=== PATIENT | male | born 1940 | race Caucasian/White ===

== ENCOUNTER 2017-08-19 15:18 | Inpatient (IN) | payer OTHER ==
[2017-08-19] MEDS: morphine 4 MG/ML VIAL IV (21:58)
[2017-08-19] MEDS: ONDANSETRON 4 MG INJ IV (21:58)
[2017-08-19] MEDS: SODIUM CHLORIDE 0.9% 1L BAG IV* (21:59)
[2017-08-19 22:06] LABS: ADD MAN DIFF? NO
[2017-08-19 22:09] LABS: WHITE BLOOD COUNT 6.3 10^3/ul (4.8-10.8)
[2017-08-19 22:09] LABS: BASOPHILS % 0.6 % (0.0-2.0); EOSINOPHILS % 0.2 % (0.0-7.0); HEMATOCRIT 29.6 % (42.0-52.0); HEMOGLOBIN 9.7 g/dl (14.0-18.0); LYMPHOCYTES # 1.3 10^3/ul (0.8-2.9); LYMPHOCYTES % 20.4 % (15.0-51.0); MEAN CORPUSCULAR HEMOGLOBIN 29.6 pg (29.0-33.0); MEAN CORPUSCULAR HGB CONC 32.8 g/dl (32.0-37.0); MEAN CORPUSCULAR VOLUME 90.2 fl (82.0-101.0); MEAN PLATELET VOLUME 12.8 fl (7.4-10.4); MONOCYTE # 0.5 10^3/ul (0.3-0.9); MONOCYTES % 7.2 % (0.0-11.0); NEUTROPHIL # 4.4 10^3/ul (1.6-7.5); NEUTROPHILS % 70.6 % (39.0-77.0); PLATELET COUNT 116 10^3/UL (140-415); RED BLOOD COUNT 3.28 10^6/ul (4.70-6.10); RED CELL DISTRIBUTION WIDTH 17.5 % (11.5-14.5)
[2017-08-19 22:26] LABS: ADD UMIC YES; UR ASCORBIC ACID NEGATIVE (NEGATIVE); UR BACTERIA FEW /HPF (NONE SEEN); UR BILIRUBIN (Dip) NEGATIVE (NEGATIVE); UR BLOOD (Dip) 3+ mg/dL (NEGATIVE); UR CLARITY SLIGHTLY CLOUDY (CLEAR); UR COLOR YELLOW (YELLOW); UR GLUCOSE (Dip) NEGATIVE (NEGATIVE); UR KETONES (Dip) NEGATIVE (NEGATIVE); UR LEUKOCYTE ESTERASE (Dip) 2+ Leu/ul (NEGATIVE); UR NITRITE (Dip) NEGATIVE (NEGATIVE); UR RBC 46 /HPF (0-5); UR SPECIFIC GRAVITY (Dip) 1.013 (1.003-1.030); UR TOTAL PROTEIN (Dip) 2+ mg/dl (NEGATIVE); UR UROBILINOGEN (Dip) 1+ mg/dL (NEGATIVE); UR WBC 22 /HPF (0-5)
[2017-08-19 22:27] LABS: ALANINE AMINOTRANSFERASE 305 IU/L (13-69); ALBUMIN 4.3 g/dl (3.3-4.9); ALBUMIN/GLOBULIN RATIO 1.16; ALKALINE PHOSPHATASE 146 IU/L (42-121); ANION GAP 23 (8-16); ASPARTATE AMINO TRANSFERASE 292 IU/L (15-46); BILIRUBIN,INDIRECT 0.7 mg/dl (0-1.1); BILIRUBIN,TOTAL 0.7 mg/dl (0.2-1.3); BLOOD UREA NITROGEN 70 mg/dl (7-20); CALCIUM 9.2 mg/dl (8.4-10.2); CARBON DIOXIDE 20 mmol/L (21-31); CHLORIDE 100 mmol/L (97-110); CREATININE 2.29 mg/dl (0.61-1.24); GLUCOSE 121 mg/dl (70-220); LIPASE 110 U/L (23-300); POTASSIUM 3.8 mmol/L (3.5-5.1); SODIUM 139 mmol/L (135-144)
[2017-08-19 22:46] LABS: LACTIC ACID 2.2 mmol/L (0.5-2.0)
[2017-08-19 23:33] LABS: INR 1.79; PARTIAL THROMBOPLASTIN TIME 32.9 Sec (25.0-35.0); PROTIME 21.2 Sec (11.9-14.9); PT RATIO 1.7
[2017-08-20] MEDS: PIPER-TAZO 3.375 GM IV (PMX) 50 ML IVPB (00:26)
[2017-08-20] MEDS ORDERED: ACETAMINOPHEN 325 MG TAB PO (01:00)
[2017-08-20] MEDS ORDERED: ONDANSETRON 4 MG INJ IV (01:00)
[2017-08-20] MEDS: SOD CHLORIDE 0.9% 1,000 ML IV (01:01)
[2017-08-20 03:38] LABS: LACTIC ACID 1.7 mmol/L (0.5-2.0)
[2017-08-20] MEDS: SOD CHLORIDE 0.9% 500 ML IV ×4 (04:20→20:18)
[2017-08-20] MEDS: INSULIN ASPART [NOVOLOG] 3 ML PEN SC ×5 (04:23→20:26)
[2017-08-20] MEDS ORDERED: DEXTROSE 50% 50 ML SYRINGE IV ×2 (04:30)
[2017-08-20] MEDS ORDERED: GLUCOSE GEL 15 GRAM TUBE BUCCAL (04:30)
[2017-08-20] MEDS ORDERED: GLUCAGON 1 MG INJ IM (04:30)
[2017-08-20] MEDS ORDERED: GLUCOSE GEL 15 GRAM TUBE PO ×2 (04:30)
[2017-08-20] MEDS: DEXTROSE 5%-0.9% NACL 1,000 ML IV ×3 (05:22→15:59)
[2017-08-20] MEDS: PIPER-TAZO 2.25 GM (PMX) 50 ML IVPB ×3 (06:17→18:46)
[2017-08-20 06:46] LABS: ADD MAN DIFF? NO
[2017-08-20 07:04] LABS: ABNORMAL IP MESSAGE 1; BASOPHILS % 0.3 % (0.0-2.0); HEMATOCRIT 28.3 % (42.0-52.0); LYMPHOCYTES # 0.8 10^3/ul (0.8-2.9); LYMPHOCYTES % 11.5 % (15.0-51.0); MEAN CORPUSCULAR HGB CONC 31.8 g/dl (32.0-37.0); MEAN CORPUSCULAR VOLUME 94.3 fl (82.0-101.0); MEAN PLATELET VOLUME 13.3 fl (7.4-10.4); MONOCYTE # 0.5 10^3/ul (0.3-0.9); MONOCYTES % 6.9 % (0.0-11.0); NEUTROPHIL # 5.3 10^3/ul (1.6-7.5); NEUTROPHILS % 80.5 % (39.0-77.0); PLATELET COUNT 91 10^3/UL (140-415); POSITIVE DIFF @See below; RED CELL DISTRIBUTION WIDTH 17.5 % (11.5-14.5)
[2017-08-20 07:04] LABS: WHITE BLOOD COUNT 6.5 10^3/ul (4.8-10.8)
[2017-08-20 07:13] LABS: ALANINE AMINOTRANSFERASE 482 IU/L (13-69); ALBUMIN 3.3 g/dl (3.3-4.9); ALBUMIN/GLOBULIN RATIO 1.03; ALKALINE PHOSPHATASE 183 IU/L (42-121); ANION GAP 19 (8-16); ASPARTATE AMINO TRANSFERASE 525 IU/L (15-46); BILIRUBIN,INDIRECT 0.6 mg/dl (0-1.1); BILIRUBIN,TOTAL 0.6 mg/dl (0.2-1.3); BLOOD UREA NITROGEN 69 mg/dl (7-20); CALCIUM 8.1 mg/dl (8.4-10.2); CARBON DIOXIDE 19 mmol/L (21-31); CHLORIDE 107 mmol/L (97-110); CREATININE 2.25 mg/dl (0.61-1.24); GLUCOSE 117 mg/dl (70-220); MAGNESIUM 2.2 mg/dl (1.7-2.5); PHOSPHORUS 6.5 mg/dl (2.5-4.9); POTASSIUM 4.1 mmol/L (3.5-5.1); SODIUM 141 mmol/L (135-144); TOTAL PROTEIN 6.5 g/dl (6.1-8.1)
[2017-08-20 07:37] LABS: LACTIC ACID 2.3 mmol/L (0.5-2.0)
[2017-08-20] MEDS: FAMOTIDINE 20 MG INJ IV (09:20)
[2017-08-20 10:47] LABS: HEMOGLOBIN A1C 6.3 % (0-5.9)
[2017-08-20] MEDS ORDERED: SOD CHLORIDE 0.9% 1,000 ML IV (11:00)
[2017-08-20 14:08] LABS: LACTIC ACID 3.2 mmol/L (0.5-2.0)
[2017-08-20] MEDS: TAMSULOSIN (SR) 0.4 MG CAP PO (20:22)
[2017-08-20] MEDS: ALBUTEROL/IPRATROPIUM (NEB) 3 ML AMP HHN (21:14)
[2017-08-20] MEDS: ACETAMINOPHEN 1000MG/100ML IV 100 ML IVPB (21:27)
[2017-08-21] MEDS: PIPER-TAZO 2.25 GM (PMX) 50 ML IVPB ×5 (01:04→23:32)
[2017-08-21] MEDS: INSULIN ASPART [NOVOLOG] 3 ML PEN SC ×6 (01:13→20:28)
[2017-08-21] MEDS: ACCU-CHEK XX (01:13)
[2017-08-21] MEDS: DEXTROSE 5%-0.9% NACL 1,000 ML IV ×4 (03:56→23:33)
[2017-08-21] MEDS: ALBUTEROL/IPRATROPIUM (NEB) 3 ML AMP HHN (05:27)
[2017-08-21] MEDS: FAMOTIDINE 20 MG INJ IV (08:40)
[2017-08-21 09:56] LABS: ANION GAP 24 (8-16); BLOOD UREA NITROGEN 71 mg/dl (7-20); CALCIUM 8.2 mg/dl (8.4-10.2); CARBON DIOXIDE 11 mmol/L (21-31); CHLORIDE 115 mmol/L (97-110); CREATININE 2.46 mg/dl (0.61-1.24); GLUCOSE 128 mg/dl (70-220); POTASSIUM 4.7 mmol/L (3.5-5.1); SODIUM 145 mmol/L (135-144)
[2017-08-21 10:24] LABS: ALANINE AMINOTRANSFERASE 810 IU/L (13-69); ALBUMIN 3.8 g/dl (3.3-4.9); ALKALINE PHOSPHATASE 244 IU/L (42-121); BILIRUBIN,INDIRECT 0.6 mg/dl (0-1.1); BILIRUBIN,TOTAL 0.6 mg/dl (0.2-1.3); TOTAL PROTEIN 7.2 g/dl (6.1-8.1)
[2017-08-21 10:39] LABS: ASPARTATE AMINO TRANSFERASE 1145 IU/L (15-46)
[2017-08-21 12:19] LABS: WHITE BLOOD COUNT 7.4 10^3/ul (4.8-10.8)
[2017-08-21 12:19] LABS: ABNORMAL IP MESSAGE 1; HEMATOCRIT 29.3 % (42.0-52.0); HEMOGLOBIN 9.6 g/dl (14.0-18.0); MEAN CORPUSCULAR HEMOGLOBIN 30.7 pg (29.0-33.0); MEAN CORPUSCULAR HGB CONC 32.8 g/dl (32.0-37.0); MEAN CORPUSCULAR VOLUME 93.6 fl (82.0-101.0); MEAN PLATELET VOLUME 14.2 fl (7.4-10.4); NUCLEATED RED BLOOD CELLS% 0.7 /100WBC (0.0-0.0); POSITIVE DIFF @See below; RED BLOOD COUNT 3.13 10^6/ul (4.70-6.10); RED CELL DISTRIBUTION WIDTH 17.7 % (11.5-14.5)
[2017-08-21 12:22] LABS: PLATELET COUNT 65 10^3/UL (140-415)
[2017-08-21 12:23] LABS: ADD MAN DIFF? YES
[2017-08-21 12:46] LABS: ALANINE AMINOTRANSFERASE 971 IU/L (13-69); ALKALINE PHOSPHATASE 133 IU/L (42-121); ANION GAP 19 (8-16); BILIRUBIN,INDIRECT 0.5 mg/dl (0-1.1); BILIRUBIN,TOTAL 0.5 mg/dl (0.2-1.3); BLOOD UREA NITROGEN 69 mg/dl (7-20); CALCIUM 8.2 mg/dl (8.4-10.2); CARBON DIOXIDE 15 mmol/L (21-31); CHLORIDE 115 mmol/L (97-110); CREATININE 2.43 mg/dl (0.61-1.24); GLUCOSE 135 mg/dl (70-220); POTASSIUM 3.6 mmol/L (3.5-5.1); SODIUM 145 mmol/L (135-144)
[2017-08-21 12:53] LABS: ASPARTATE AMINO TRANSFERASE 905 IU/L (15-46)
[2017-08-21 12:56] LABS: LACTIC ACID 3.3 mmol/L (0.5-2.0)
[2017-08-21 13:01] LABS: ANISOCYTOSIS 1+ (0-0); BAND NEUTROPHILS #M 0.5 10^3/ul (0.0-0.6); BAND NEUTROPHILS % (M) 8 % (0-4); BASOPHIL #M 0.1 10^3/ul (0.0-0.0); BASOPHILS % (M) 2 % (0-2); ERYTHROBLAST% (NRBC) (M) 2 % (0-0); LYMPHOCYTES % (M) 14 % (15-51); MONOCYTE #M 0.5 10^3/ul (0.3-0.9); MONOCYTES % (M) 7 % (0-11); PLATELET ESTIMATE DECREASED; POIKILOCYTOSIS 1+ (0-0); POLYCHROMASIA 3+ (0-0); SEG NEUT #M 5.1 10^3/ul (1.7-7.5); SEGMENTED NEUTROPHILS (M) % 69 % (39-77); SMUDGE%M 2 % (0-0)
[2017-08-21 17:11] LABS: CARCINOEMBRYONIC ANTIGEN 1.2 ng/ml (0.0-5.0)
[2017-08-21 17:15] LABS: CANCER ANTIGEN 19-9 10.4 U/ml (0.0-37.0)
[2017-08-21 17:22] LABS: ALPHA FETOPROTEIN 1.18 IU/L (0.00-7.21)
[2017-08-21] MEDS: TAMSULOSIN (SR) 0.4 MG CAP PO (20:28)
[2017-08-22] MEDS: INSULIN ASPART [NOVOLOG] 3 ML PEN SC ×6 (01:00→21:34)
[2017-08-22] MEDS: ACCU-CHEK XX (01:17)
[2017-08-22] MEDS: PIPER-TAZO 2.25 GM (PMX) 50 ML IVPB ×3 (05:32→17:19)
[2017-08-22] MEDS: DEXTROSE 5%-0.9% NACL 1,000 ML IV ×2 (05:48→08:24)
[2017-08-22 08:06] LABS: WHITE BLOOD COUNT 7.4 10^3/ul (4.8-10.8)
[2017-08-22 08:06] LABS: ABNORMAL IP MESSAGE 1; HEMATOCRIT 27.8 % (42.0-52.0); HEMOGLOBIN 8.8 g/dl (14.0-18.0); MEAN CORPUSCULAR HEMOGLOBIN 29.7 pg (29.0-33.0); MEAN CORPUSCULAR HGB CONC 31.7 g/dl (32.0-37.0); MEAN CORPUSCULAR VOLUME 93.9 fl (82.0-101.0); NUCLEATED RED BLOOD CELLS% 0.8 /100WBC (0.0-0.0); PLATELET COUNT 39 10^3/UL (140-415); POSITIVE DIFF @See below; RED BLOOD COUNT 2.96 10^6/ul (4.70-6.10); RED CELL DISTRIBUTION WIDTH 17.9 % (11.5-14.5)
[2017-08-22] MEDS: FAMOTIDINE 20 MG INJ IV (08:24)
[2017-08-22 08:32] LABS: ANION GAP 20 (8-16); BLOOD UREA NITROGEN 63 mg/dl (7-20); CALCIUM 8.5 mg/dl (8.4-10.2); CARBON DIOXIDE 16 mmol/L (21-31); CHLORIDE 116 mmol/L (97-110); CREATININE 2.44 mg/dl (0.61-1.24); GLUCOSE 113 mg/dl (70-220); POTASSIUM 3.3 mmol/L (3.5-5.1); SODIUM 149 mmol/L (135-144)
[2017-08-22 08:39] LABS: ADD MAN DIFF? YES
[2017-08-22 09:05] LABS: AADO2 Arterial 37.6 mmHg (7.0-24.0); Allen Test ACCEPTAB; Arterial Base Excess -9.8 mmol/L (-3.0-3); Arterial Blood Gas Oxygen Sat 93.7 mmHG (95.0-100.0); Arterial COHb 0.2 % (0.0-3.0); Arterial Fraction of Oxyhgb 93.2 % (93.0-99.0); Arterial HCO3 14.4 mmol/L (22.0-26.0); Arterial MetHb 0.3 % (0.0-1.5); Arterial Total Hemglobin 9.4 g/dl (12.0-18.0); Arterial pCO2 26.2 mmhg (35-45); MODE ROOM AIR; Site Right Radial
[2017-08-22] MEDS: HYDROCODONE/APAP (5/325) TAB PO (09:36)
[2017-08-22] MEDS: DEXTROSE 5%-0.45% NACL 1,000 ML IV ×2 (09:36→17:18)
[2017-08-22] MEDS: POTASSIUM CHLORIDE 20 MEQ POWDER FOR ORAL SOLN PO (09:37)
[2017-08-22 09:47] LABS: ANISOCYTOSIS 1+ (0-0); BURR CELLS 2+ (0-0); EOSINOPHILS % (M) 2 % (0-7); ERYTHROBLAST% (NRBC) (M) 2 % (0-0); GIANT THROMBO% (M) 2 % (0-0); HYPOCHROMASIA 1+ (0-0); LYMPHOCYTES #M 0.8 10^3/ul (0.8-2.9); LYMPHOCYTES % (M) 11 % (15-51); MONOCYTE #M 0.5 10^3/ul (0.3-0.9); MONOCYTES % (M) 7 % (0-11); PLATELET ESTIMATE DECREASED; POIKILOCYTOSIS 2+ (0-0); POLYCHROMASIA 1+ (0-0); REACTIVE LYMPHOCYTES% (M) 1 % (0-0); SEGMENTED NEUTROPHILS (M) % 79 % (39-77); SMUDGE%M 2 % (0-0); TARGET CELLS 1+ (0-0)
[2017-08-22 12:44] LABS: ADD UMIC YES; UR ASCORBIC ACID NEGATIVE (NEGATIVE); UR BACTERIA FEW /HPF (NONE SEEN); UR BILIRUBIN (Dip) NEGATIVE (NEGATIVE); UR BLOOD (Dip) 1+ mg/dL (NEGATIVE); UR CLARITY CLEAR (CLEAR); UR COLOR YELLOW (YELLOW); UR GLUCOSE (Dip) NEGATIVE (NEGATIVE); UR KETONES (Dip) NEGATIVE (NEGATIVE); UR LEUKOCYTE ESTERASE (Dip) TRACE Leu/ul (NEGATIVE); UR NITRITE (Dip) NEGATIVE (NEGATIVE); UR RBC 3 /HPF (0-5); UR SPECIFIC GRAVITY (Dip) 1.016 (1.003-1.030); UR TOTAL PROTEIN (Dip) 1+ mg/dl (NEGATIVE); UR UROBILINOGEN (Dip) NEGATIVE (NEGATIVE); UR WBC 4 /HPF (0-5)
[2017-08-22 12:58] LABS: SODIUM,URINE RANDOM 17 mmol/L (30-90)
[2017-08-22 14:11] LABS: ALANINE AMINOTRANSFERASE 848 IU/L (13-69); ALBUMIN 2.9 g/dl (3.3-4.9); ALKALINE PHOSPHATASE 120 IU/L (42-121); ASPARTATE AMINO TRANSFERASE 520 IU/L (15-46); BILIRUBIN,INDIRECT 0.5 mg/dl (0-1.1); BILIRUBIN,TOTAL 0.5 mg/dl (0.2-1.3); TOTAL PROTEIN 6.1 g/dl (6.1-8.1)
[2017-08-22] MEDS: ALBUTEROL/IPRATROPIUM (NEB) 3 ML AMP HHN ×2 (14:14→20:47)
[2017-08-22 18:06] LABS: HEPATITIS B SURFACE ANTIGEN NEGATIVE (NEGATIVE)
[2017-08-22 18:22] LABS: HEPATITIS B SURFACE ANTIBODY NEGATIVE (NEGATIVE)
[2017-08-22 18:24] LABS: HEPATITIS B CORE ANTIBODY NEGATIVE (NEGATIVE); HEPATITIS C VIRAL ANTIBODY NEGATIVE (NEGATIVE)
[2017-08-22] MEDS ORDERED: ATORVASTATIN 80 MG TAB PO (21:00)
[2017-08-22] MEDS: TAMSULOSIN (SR) 0.4 MG CAP PO (21:05)
[2017-08-23] MEDS: PIPER-TAZO 2.25 GM (PMX) 50 ML IVPB ×5 (00:39→23:02)
[2017-08-23] MEDS: INSULIN ASPART [NOVOLOG] 3 ML PEN SC ×6 (00:54→21:00)
[2017-08-23] MEDS: ACCU-CHEK XX (00:54)
[2017-08-23] MEDS: ALBUTEROL/IPRATROPIUM (NEB) 3 ML AMP HHN ×5 (01:52→19:43)
[2017-08-23] MEDS: DEXTROSE 5%-0.45% NACL 1,000 ML IV ×2 (05:01→12:51)
[2017-08-23 08:06] LABS: ADD MAN DIFF? NO
[2017-08-23] MEDS: ASPIRIN (EC) 81 MG TAB PO (08:15)
[2017-08-23] MEDS: ISOSORBIDE MONONITRATE(SR)30 MG TAB PO (08:15)
[2017-08-23] MEDS: FAMOTIDINE 20 MG INJ IV (08:18)
[2017-08-23 08:19] LABS: ABNORMAL IP MESSAGE 1; BASOPHIL # 0.1 10^3/ul (0.0-0.1); BASOPHILS % 0.7 % (0.0-2.0); EOSINOPHILS % 0.3 % (0.0-7.0); HEMATOCRIT 30.1 % (42.0-52.0); HEMOGLOBIN 9.4 g/dl (14.0-18.0); LYMPHOCYTES # 0.9 10^3/ul (0.8-2.9); LYMPHOCYTES % 11.8 % (15.0-51.0); MEAN CORPUSCULAR HEMOGLOBIN 29.8 pg (29.0-33.0); MEAN CORPUSCULAR HGB CONC 31.2 g/dl (32.0-37.0); MEAN CORPUSCULAR VOLUME 95.6 fl (82.0-101.0); MONOCYTE # 0.8 10^3/ul (0.3-0.9); MONOCYTES % 10.3 % (0.0-11.0); NEUTROPHIL # 5.6 10^3/ul (1.6-7.5); NEUTROPHILS % 75.6 % (39.0-77.0); NUCLEATED RED BLOOD CELLS # 0.1 10^3/ul (0.0-0.0); NUCLEATED RED BLOOD CELLS% 1.3 /100WBC (0.0-0.0); POSITIVE DIFF @See below; RED BLOOD COUNT 3.15 10^6/ul (4.70-6.10); RED CELL DISTRIBUTION WIDTH 18.3 % (11.5-14.5)
[2017-08-23 08:19] LABS: WHITE BLOOD COUNT 7.5 10^3/ul (4.8-10.8)
[2017-08-23 08:32] LABS: PLATELET COUNT 34 10^3/UL (140-415)
[2017-08-23 08:39] LABS: ALANINE AMINOTRANSFERASE 935 IU/L (13-69); ALBUMIN 2.9 g/dl (3.3-4.9); ALBUMIN/GLOBULIN RATIO 0.82; ALKALINE PHOSPHATASE 126 IU/L (42-121); ANION GAP 18 (8-16); ASPARTATE AMINO TRANSFERASE 605 IU/L (15-46); BILIRUBIN,INDIRECT 0.6 mg/dl (0-1.1); BILIRUBIN,TOTAL 0.6 mg/dl (0.2-1.3); BLOOD UREA NITROGEN 54 mg/dl (7-20); CALCIUM 8.5 mg/dl (8.4-10.2); CARBON DIOXIDE 14 mmol/L (21-31); CHLORIDE 115 mmol/L (97-110); CREATININE 2.35 mg/dl (0.61-1.24); GLUCOSE 125 mg/dl (70-220); POTASSIUM 3.5 mmol/L (3.5-5.1); SODIUM 143 mmol/L (135-144); TOTAL PROTEIN 6.4 g/dl (6.1-8.1)
[2017-08-23 08:40] LABS: IRON 14 ug/dl (35-150)
[2017-08-23 08:44] LABS: PHOSPHORUS 4.6 mg/dl (2.5-4.9)
[2017-08-23 08:44] LABS: MAGNESIUM 2.2 mg/dl (1.7-2.5)
[2017-08-23 08:50] LABS: % IRON SATURATION 4 % SAT (22-52); TOTAL IRON BINDING CAPACITY 339 ug/dl (241-421)
[2017-08-23 09:08] LABS: FERRITIN 33.1 ng/ml (11.1-264.0)
[2017-08-23 09:57] LABS: CHOLESTEROL 62 mg/dl (100-200)
[2017-08-23 09:57] LABS: HDL CHOLESTEROL 31 mg/dl (31-75); LDL CHOLESTEROL,CALCULATED 21 mg/dl; TRIGLYCERIDES 52 mg/dl (0-149)
[2017-08-23 13:28] LABS: MITOCHONDRIAL TB NEGATIVE (NEGATIVE); SMOOTH MUSCLE AB SCREEN NEGATIVE (NEGATIVE)
[2017-08-23 15:42] LABS: CREATININE, RANDOM URINE 80 mg/dL (20-370); MICROALBUMIN 8.2 mg/dL; MICROALBUMIN/CREATININE RATIO 103 (<30)
[2017-08-23] MEDS: TAMSULOSIN (SR) 0.4 MG CAP PO (20:36)
[2017-08-23 20:53] LABS: ANA SCREEN POSITIVE (NEGATIVE)
[2017-08-23 21:32] LABS: ANA PATTERN NUCLEOLAR
[2017-08-23] MEDS: HYDROCODONE/APAP (5/325) TAB PO (21:41)
[2017-08-24] MEDS: INSULIN ASPART [NOVOLOG] 3 ML PEN SC ×5 (01:00→20:40)
[2017-08-24] MEDS: ACCU-CHEK XX (01:42)
[2017-08-24] MEDS: ALBUTEROL/IPRATROPIUM (NEB) 3 ML AMP HHN ×4 (04:04→19:55)
[2017-08-24] MEDS: HYDROCODONE/APAP (5/325) TAB PO ×2 (04:09→12:24)
[2017-08-24] MEDS: PIPER-TAZO 2.25 GM (PMX) 50 ML IVPB ×4 (06:23→23:13)
[2017-08-24] MEDS: DEXTROSE 5%-0.45% NACL 1,000 ML IV (08:33)
[2017-08-24] MEDS: FAMOTIDINE 20 MG INJ IV (08:34)
[2017-08-24] MEDS: ISOSORBIDE MONONITRATE(SR)30 MG TAB PO (08:35)
[2017-08-24] MEDS: ASPIRIN (EC) 81 MG TAB PO (08:35)
[2017-08-24 08:54] LABS: ADD MAN DIFF? NO
[2017-08-24 08:58] LABS: ABNORMAL IP MESSAGE 1; BASOPHILS % 0.5 % (0.0-2.0); EOSINOPHILS # 0.1 10^3/ul (0.0-0.5); EOSINOPHILS % 0.7 % (0.0-7.0); HEMOGLOBIN 9.3 g/dl (14.0-18.0); LYMPHOCYTES # 0.9 10^3/ul (0.8-2.9); LYMPHOCYTES % 10.6 % (15.0-51.0); MEAN CORPUSCULAR HEMOGLOBIN 30.5 pg (29.0-33.0); MEAN CORPUSCULAR HGB CONC 33.2 g/dl (32.0-37.0); MEAN CORPUSCULAR VOLUME 91.8 fl (82.0-101.0); MONOCYTE # 0.7 10^3/ul (0.3-0.9); MONOCYTES % 8.5 % (0.0-11.0); NEUTROPHIL # 6.3 10^3/ul (1.6-7.5); NEUTROPHILS % 78.3 % (39.0-77.0); NUCLEATED RED BLOOD CELLS # 0.2 10^3/ul (0.0-0.0); POSITIVE DIFF @See below; RED BLOOD COUNT 3.05 10^6/ul (4.70-6.10); RED CELL DISTRIBUTION WIDTH 18.2 % (11.5-14.5)
[2017-08-24 09:00] LABS: PLATELET COUNT 28 10^3/UL (140-415)
[2017-08-24 09:31] LABS: PHOSPHORUS 5.2 mg/dl (2.5-4.9)
[2017-08-24 09:31] LABS: MAGNESIUM 2.2 mg/dl (1.7-2.5)
[2017-08-24 09:32] LABS: ALANINE AMINOTRANSFERASE 773 IU/L (13-69); ALBUMIN 2.7 g/dl (3.3-4.9); ALBUMIN/GLOBULIN RATIO 0.77; ALKALINE PHOSPHATASE 127 IU/L (42-121); ANION GAP 18 (8-16); ASPARTATE AMINO TRANSFERASE 320 IU/L (15-46); BILIRUBIN,INDIRECT 0.5 mg/dl (0-1.1); BILIRUBIN,TOTAL 0.5 mg/dl (0.2-1.3); BLOOD UREA NITROGEN 55 mg/dl (7-20); CALCIUM 8.8 mg/dl (8.4-10.2); CARBON DIOXIDE 13 mmol/L (21-31); CHLORIDE 112 mmol/L (97-110); CREATININE 2.45 mg/dl (0.61-1.24); GLUCOSE 126 mg/dl (70-220); SODIUM 139 mmol/L (135-144); TOTAL PROTEIN 6.2 g/dl (6.1-8.1)
[2017-08-24] MEDS: FUROSEMIDE 20 MG INJ IV (12:23)
[2017-08-24 12:27] LABS: PROTIME 28.6 Sec (11.9-14.9); PT RATIO 2.2
[2017-08-24 12:32] LABS: URIC ACID 11.2 mg/dl (3.1-7.9)
[2017-08-24] MEDS: TAMSULOSIN (SR) 0.4 MG CAP PO (20:41)
[2017-08-24 20:52] LABS: TYPE AND SCREEN 1
[2017-08-25] MEDS: ACCU-CHEK XX (00:31)
[2017-08-25] MEDS: PIPER-TAZO 2.25 GM (PMX) 50 ML IVPB (04:41)
[2017-08-25 05:58] LABS: TYPE AND SCREEN 1 1
[2017-08-25] MEDS: INSULIN ASPART [NOVOLOG] 3 ML PEN SC ×4 (07:30→20:51)
[2017-08-25] MEDS: FAMOTIDINE 20 MG INJ IV (08:34)
[2017-08-25] MEDS: ISOSORBIDE MONONITRATE(SR)30 MG TAB PO (08:34)
[2017-08-25] MEDS: ASPIRIN (EC) 81 MG TAB PO (08:35)
[2017-08-25] MEDS: FUROSEMIDE 20 MG INJ IV (08:36)
[2017-08-25] MEDS: ALBUTEROL/IPRATROPIUM (NEB) 3 ML AMP HHN ×3 (09:01→20:15)
[2017-08-25 09:11] LABS: ADD MAN DIFF? NO
[2017-08-25 09:14] LABS: ABNORMAL IP MESSAGE 1; BASOPHILS % 0.5 % (0.0-2.0); EOSINOPHILS # 0.1 10^3/ul (0.0-0.5); HEMATOCRIT 26.8 % (42.0-52.0); HEMOGLOBIN 8.7 g/dl (14.0-18.0); LYMPHOCYTES # 0.8 10^3/ul (0.8-2.9); LYMPHOCYTES % 10.6 % (15.0-51.0); MEAN CORPUSCULAR HEMOGLOBIN 29.7 pg (29.0-33.0); MEAN CORPUSCULAR HGB CONC 32.5 g/dl (32.0-37.0); MEAN CORPUSCULAR VOLUME 91.5 fl (82.0-101.0); MEAN PLATELET VOLUME 12.1 fl (7.4-10.4); MONOCYTE # 0.7 10^3/ul (0.3-0.9); MONOCYTES % 9.2 % (0.0-11.0); NEUTROPHIL # 6.2 10^3/ul (1.6-7.5); NEUTROPHILS % 77.4 % (39.0-77.0); NUCLEATED RED BLOOD CELLS # 0.1 10^3/ul (0.0-0.0); NUCLEATED RED BLOOD CELLS% 1.6 /100WBC (0.0-0.0); PLATELET COUNT 97 10^3/UL (140-415); POSITIVE DIFF @See below; RED BLOOD COUNT 2.93 10^6/ul (4.70-6.10); RED CELL DISTRIBUTION WIDTH 18.5 % (11.5-14.5)
[2017-08-25 09:41] LABS: INR 1.98; PT RATIO 1.8
[2017-08-25 09:49] LABS: ALANINE AMINOTRANSFERASE 580 IU/L (13-69); ALBUMIN 3.1 g/dl (3.3-4.9); ALBUMIN/GLOBULIN RATIO 0.91; ALKALINE PHOSPHATASE 126 IU/L (42-121); ANION GAP 19 (8-16); ASPARTATE AMINO TRANSFERASE 191 IU/L (15-46); BILIRUBIN,INDIRECT 0.5 mg/dl (0-1.1); BILIRUBIN,TOTAL 0.5 mg/dl (0.2-1.3); BLOOD UREA NITROGEN 65 mg/dl (7-20); CALCIUM 9.1 mg/dl (8.4-10.2); CARBON DIOXIDE 15 mmol/L (21-31); CHLORIDE 109 mmol/L (97-110); CREATININE 2.92 mg/dl (0.61-1.24); GLUCOSE 96 mg/dl (70-220); SODIUM 139 mmol/L (135-144); TOTAL PROTEIN 6.5 g/dl (6.1-8.1)
[2017-08-25 09:52] LABS: MAGNESIUM 2.1 mg/dl (1.7-2.5)
[2017-08-25 09:52] LABS: PHOSPHORUS 6.4 mg/dl (2.5-4.9)
[2017-08-25 10:19] LABS: AADO2 Arterial 15.2 mmHg (7.0-24.0); Arterial Base Excess -13.5 mmol/L (-3.0-3); Arterial Blood Gas Oxygen Sat 97.3 mmHG (95.0-100.0); Arterial COHb 0.3 % (0.0-3.0); Arterial Fraction of Oxyhgb 96.7 % (93.0-99.0); Arterial HCO3 10.4 mmol/L (22.0-26.0); Arterial MetHb 0.3 % (0.0-1.5); Arterial Total Hemglobin 10.2 g/dl (12.0-18.0); Arterial pCO2 19.8 mmhg (35-45); MODE ROOM AIR; Site LB
[2017-08-25 10:22] LABS: LACTATE DEHYDROGENASE 673 IU/L (313-618)
[2017-08-25] MEDS: LEVOFLOXACIN 500MG/D5W (PMX) 100 ML IVPB (13:08)
[2017-08-25] MEDS: SOD FERRIC GLUC COMPLX 125 MG in SOD CHLORIDE 0.9% 100 ML IVPB (14:19)
[2017-08-25 15:22] LABS: INR 1.93; PROTIME 22.5 Sec (11.9-14.9); PT RATIO 1.8
[2017-08-25] MEDS: FUROSEMIDE 40 MG INJ IV (17:56)
[2017-08-25] MEDS: TAMSULOSIN (SR) 0.4 MG CAP PO (20:51)
[2017-08-26] MEDS: ACCU-CHEK XX (01:05)
[2017-08-26] MEDS: HYDROCODONE/APAP (5/325) TAB PO (01:53)
[2017-08-26] MEDS: FUROSEMIDE 40 MG INJ IV ×2 (05:48→17:30)
[2017-08-26 06:32] LABS: AADO2 Arterial 60.5 mmHg (7.0-24.0); Allen Test ACCEPTAB; Arterial Base Excess -12.5 mmol/L (-3.0-3); Arterial Blood Gas Oxygen Sat 81.5 mmHG (95.0-100.0); Arterial COHb 0.3 % (0.0-3.0); Arterial HCO3 12.8 mmol/L (22.0-26.0); Arterial MetHb 0.3 % (0.0-1.5); Arterial Total Hemglobin 9.9 g/dl (12.0-18.0); Arterial pCO2 27.7 mmhg (35-45); MODE ROOM AIR; Site Left Radial
[2017-08-26 06:37] LABS: ADD MAN DIFF? NO
[2017-08-26 06:44] LABS: WHITE BLOOD COUNT 7.1 10^3/ul (4.8-10.8)
[2017-08-26 06:44] LABS: ABNORMAL IP MESSAGE 1; BASOPHILS % 0.4 % (0.0-2.0); EOSINOPHILS % 0.1 % (0.0-7.0); HEMATOCRIT 26.8 % (42.0-52.0); HEMOGLOBIN 8.8 g/dl (14.0-18.0); LYMPHOCYTES # 0.7 10^3/ul (0.8-2.9); LYMPHOCYTES % 10.3 % (15.0-51.0); MEAN CORPUSCULAR HEMOGLOBIN 29.9 pg (29.0-33.0); MEAN CORPUSCULAR HGB CONC 32.8 g/dl (32.0-37.0); MEAN CORPUSCULAR VOLUME 91.2 fl (82.0-101.0); MEAN PLATELET VOLUME 12.8 fl (7.4-10.4); MONOCYTE # 0.7 10^3/ul (0.3-0.9); MONOCYTES % 9.8 % (0.0-11.0); NEUTROPHIL # 5.5 10^3/ul (1.6-7.5); NEUTROPHILS % 78.1 % (39.0-77.0); NUCLEATED RED BLOOD CELLS # 0.2 10^3/ul (0.0-0.0); NUCLEATED RED BLOOD CELLS% 2.1 /100WBC (0.0-0.0); PLATELET COUNT 68 10^3/UL (140-415); POSITIVE DIFF @See below; RED BLOOD COUNT 2.94 10^6/ul (4.70-6.10); RED CELL DISTRIBUTION WIDTH 18.6 % (11.5-14.5)
[2017-08-26] MEDS: INSULIN ASPART [NOVOLOG] 3 ML PEN SC ×4 (07:05→20:46)
[2017-08-26 07:12] LABS: PARTIAL THROMBOPLASTIN TIME 38.5 Sec (25.0-35.0); PROTIME 23.2 Sec (11.9-14.9); PT RATIO 1.8
[2017-08-26 07:18] LABS: ALANINE AMINOTRANSFERASE 589 IU/L (13-69); ALBUMIN 3.1 g/dl (3.3-4.9); ALBUMIN/GLOBULIN RATIO 0.93; ALKALINE PHOSPHATASE 145 IU/L (42-121); ANION GAP 20 (8-16); ASPARTATE AMINO TRANSFERASE 218 IU/L (15-46); BILIRUBIN,INDIRECT 0.5 mg/dl (0-1.1); BILIRUBIN,TOTAL 0.5 mg/dl (0.2-1.3); BLOOD UREA NITROGEN 75 mg/dl (7-20); CALCIUM 9.1 mg/dl (8.4-10.2); CARBON DIOXIDE 13 mmol/L (21-31); CHLORIDE 109 mmol/L (97-110); CREATININE 3.35 mg/dl (0.61-1.24); GLUCOSE 95 mg/dl (70-220); POTASSIUM 4.2 mmol/L (3.5-5.1); SODIUM 138 mmol/L (135-144); TOTAL PROTEIN 6.4 g/dl (6.1-8.1)
[2017-08-26 07:24] LABS: AMMONIA < 9 umol/l (9-30)
[2017-08-26] MEDS: ISOSORBIDE MONONITRATE(SR)30 MG TAB PO (08:29)
[2017-08-26] MEDS: FAMOTIDINE 20 MG INJ IV (08:29)
[2017-08-26] MEDS: ASPIRIN (EC) 81 MG TAB PO (08:29)
[2017-08-26] MEDS: ALBUTEROL/IPRATROPIUM (NEB) 3 ML AMP HHN ×3 (08:45→21:25)
[2017-08-26] MEDS ORDERED: SODIUM BICARBONATE (IV ADD) 100 MEQ in SOD CHLORIDE 0.45% 900 ML IV (09:00)
[2017-08-26 09:31] LABS: MAGNESIUM 2.2 mg/dl (1.7-2.5)
[2017-08-26] MEDS: SOD FERRIC GLUC COMPLX 125 MG in SOD CHLORIDE 0.9% 100 ML IVPB (10:33)
[2017-08-26] MEDS: SODIUM BICARBONATE (IV ADD) 100 MEQ in SOD CHLORIDE 0.45% 900 ML IV (11:42)
[2017-08-26] MEDS: TAMSULOSIN (SR) 0.4 MG CAP PO (20:44)
[2017-08-27] MEDS: ACCU-CHEK XX (02:00)
[2017-08-27] MEDS: ALBUTEROL/IPRATROPIUM (NEB) 3 ML AMP HHN ×4 (03:31→19:42)
[2017-08-27] MEDS: SODIUM BICARBONATE (IV ADD) 100 MEQ in SOD CHLORIDE 0.45% 900 ML IV ×3 (03:57→18:32)
[2017-08-27] MEDS: FUROSEMIDE 40 MG INJ IV ×2 (05:50→17:54)
[2017-08-27 06:17] LABS: ADD MAN DIFF? NO
[2017-08-27 06:20] LABS: WHITE BLOOD COUNT 5.9 10^3/ul (4.8-10.8)
[2017-08-27 06:20] LABS: ABNORMAL IP MESSAGE 1; BASOPHILS % 0.3 % (0.0-2.0); EOSINOPHILS % 0.3 % (0.0-7.0); HEMOGLOBIN 8.6 g/dl (14.0-18.0); LYMPHOCYTES # 0.9 10^3/ul (0.8-2.9); LYMPHOCYTES % 14.7 % (15.0-51.0); MEAN CORPUSCULAR HEMOGLOBIN 29.9 pg (29.0-33.0); MEAN CORPUSCULAR HGB CONC 33.1 g/dl (32.0-37.0); MEAN CORPUSCULAR VOLUME 90.3 fl (82.0-101.0); MEAN PLATELET VOLUME 12.7 fl (7.4-10.4); MONOCYTE # 0.5 10^3/ul (0.3-0.9); MONOCYTES % 8.2 % (0.0-11.0); NEUTROPHIL # 4.4 10^3/ul (1.6-7.5); NEUTROPHILS % 75.1 % (39.0-77.0); NUCLEATED RED BLOOD CELLS # 0.2 10^3/ul (0.0-0.0); NUCLEATED RED BLOOD CELLS% 3.2 /100WBC (0.0-0.0); POSITIVE DIFF @See below; RED BLOOD COUNT 2.88 10^6/ul (4.70-6.10); RED CELL DISTRIBUTION WIDTH 18.3 % (11.5-14.5)
[2017-08-27 06:32] LABS: PLATELET COUNT 54 10^3/UL (140-415)
[2017-08-27 06:38] LABS: ALANINE AMINOTRANSFERASE 482 IU/L (13-69); ALBUMIN/GLOBULIN RATIO 0.96; ALKALINE PHOSPHATASE 134 IU/L (42-121); ANION GAP 20 (8-16); ASPARTATE AMINO TRANSFERASE 148 IU/L (15-46); BILIRUBIN,INDIRECT 0.5 mg/dl (0-1.1); BILIRUBIN,TOTAL 0.5 mg/dl (0.2-1.3); BLOOD UREA NITROGEN 79 mg/dl (7-20); CALCIUM 8.1 mg/dl (8.4-10.2); CARBON DIOXIDE 14 mmol/L (21-31); CHLORIDE 108 mmol/L (97-110); CREATININE 2.82 mg/dl (0.61-1.24); GLUCOSE 114 mg/dl (70-220); POTASSIUM 3.8 mmol/L (3.5-5.1); SODIUM 138 mmol/L (135-144); TOTAL PROTEIN 6.1 g/dl (6.1-8.1)
[2017-08-27] MEDS: INSULIN ASPART [NOVOLOG] 3 ML PEN SC ×4 (07:30→21:00)
[2017-08-27] MEDS: ISOSORBIDE MONONITRATE(SR)30 MG TAB PO (08:57)
[2017-08-27] MEDS: ASPIRIN (EC) 81 MG TAB PO (08:59)
[2017-08-27] MEDS: FAMOTIDINE 20 MG INJ IV (08:59)
[2017-08-27] MEDS: LEVOFLOXACIN 500MG/D5W (PMX) 100 ML IVPB (09:19)
[2017-08-27 09:34] LABS: MAGNESIUM 2.2 mg/dl (1.7-2.5)
[2017-08-27] MEDS: SOD FERRIC GLUC COMPLX 125 MG in SOD CHLORIDE 0.9% 100 ML IVPB (12:39)
[2017-08-27] MEDS: TAMSULOSIN (SR) 0.4 MG CAP PO (21:35)
[2017-08-28] MEDS: ACCU-CHEK XX (02:00)
[2017-08-28] MEDS: ALBUTEROL/IPRATROPIUM (NEB) 3 ML AMP HHN ×5 (04:20→23:59)
[2017-08-28] MEDS: FUROSEMIDE 40 MG INJ IV ×2 (06:11→17:28)
[2017-08-28 06:14] LABS: ADD MAN DIFF? NO
[2017-08-28] MEDS: HYDROCODONE/APAP (5/325) TAB PO (06:16)
[2017-08-28 06:21] LABS: WHITE BLOOD COUNT 6.2 10^3/ul (4.8-10.8)
[2017-08-28 06:21] LABS: ABNORMAL IP MESSAGE 1; BASOPHILS % 0.2 % (0.0-2.0); EOSINOPHILS % 0.2 % (0.0-7.0); HEMATOCRIT 23.9 % (42.0-52.0); HEMOGLOBIN 8.1 g/dl (14.0-18.0); LYMPHOCYTES # 0.7 10^3/ul (0.8-2.9); LYMPHOCYTES % 10.8 % (15.0-51.0); MEAN CORPUSCULAR HEMOGLOBIN 29.9 pg (29.0-33.0); MEAN CORPUSCULAR HGB CONC 33.9 g/dl (32.0-37.0); MEAN CORPUSCULAR VOLUME 88.2 fl (82.0-101.0); MEAN PLATELET VOLUME 12.4 fl (7.4-10.4); MONOCYTE # 0.6 10^3/ul (0.3-0.9); MONOCYTES % 9.5 % (0.0-11.0); NEUTROPHIL # 4.8 10^3/ul (1.6-7.5); NEUTROPHILS % 77.4 % (39.0-77.0); NUCLEATED RED BLOOD CELLS # 0.3 10^3/ul (0.0-0.0); NUCLEATED RED BLOOD CELLS% 4.2 /100WBC (0.0-0.0); PLATELET COUNT 40 10^3/UL (140-415); POSITIVE DIFF @See below; RED BLOOD COUNT 2.71 10^6/ul (4.70-6.10); RED CELL DISTRIBUTION WIDTH 18.8 % (11.5-14.5)
[2017-08-28 06:47] LABS: ALANINE AMINOTRANSFERASE 420 IU/L (13-69); ALBUMIN 2.7 g/dl (3.3-4.9); ALKALINE PHOSPHATASE 137 IU/L (42-121); ANION GAP 17 (8-16); ASPARTATE AMINO TRANSFERASE 160 IU/L (15-46); BILIRUBIN,INDIRECT 0.6 mg/dl (0-1.1); BILIRUBIN,TOTAL 0.6 mg/dl (0.2-1.3); BLOOD UREA NITROGEN 75 mg/dl (7-20); CARBON DIOXIDE 17 mmol/L (21-31); CHLORIDE 108 mmol/L (97-110); CREATININE 2.46 mg/dl (0.61-1.24); GLUCOSE 100 mg/dl (70-220); POTASSIUM 3.4 mmol/L (3.5-5.1); SODIUM 139 mmol/L (135-144); TOTAL PROTEIN 5.7 g/dl (6.1-8.1)
[2017-08-28 06:48] LABS: PROTIME 25.9 Sec (11.9-14.9)
[2017-08-28 06:49] LABS: PARTIAL THROMBOPLASTIN TIME 46.8 Sec (25.0-35.0)
[2017-08-28 07:11] LABS: MAGNESIUM 2.2 mg/dl (1.7-2.5)
[2017-08-28 07:11] LABS: PHOSPHORUS 4.8 mg/dl (2.5-4.9)
[2017-08-28] MEDS: INSULIN ASPART [NOVOLOG] 3 ML PEN SC ×4 (07:30→20:53)
[2017-08-28] MEDS: ASPIRIN (EC) 81 MG TAB PO (09:42)
[2017-08-28] MEDS: ISOSORBIDE MONONITRATE(SR)30 MG TAB PO (09:42)
[2017-08-28] MEDS: FAMOTIDINE 20 MG INJ IV (09:43)
[2017-08-28] MEDS: POTASSIUM CHLORIDE (SR) 10 MEQ TAB PO (12:12)
[2017-08-28] MEDS: SODIUM BICARBONATE (IV ADD) 100 MEQ in SOD CHLORIDE 0.45% 900 ML IV (15:07)
[2017-08-28] MEDS: TAMSULOSIN (SR) 0.4 MG CAP PO (20:51)
[2017-08-29] MEDS: ACCU-CHEK XX (02:00)
[2017-08-29] MEDS: SODIUM BICARBONATE (IV ADD) 100 MEQ in SOD CHLORIDE 0.45% 900 ML IV (03:40)
[2017-08-29 05:56] LABS: AADO2 Arterial 125.1 mmHg (7.0-24.0); Allen Test ACCEPTAB; Arterial Base Excess -1.8 mmol/L (-3.0-3); Arterial Blood Gas Oxygen Sat 77.7 mmHG (95.0-100.0); Arterial COHb 0.3 % (0.0-3.0); Arterial Fraction of Oxyhgb 77.2 % (93.0-99.0); Arterial HCO3 22.5 mmol/L (22.0-26.0); Arterial MetHb 0.4 % (0.0-1.5); Arterial Total Hemglobin 9.8 g/dl (12.0-18.0); Arterial pCO2 36.5 mmhg (35-45); MODE NASAL CANNULA; Site Left Radial
[2017-08-29] MEDS: FUROSEMIDE 40 MG INJ IV ×2 (06:00→17:42)
[2017-08-29 07:18] LABS: ADD MAN DIFF? NO
[2017-08-29] MEDS: INSULIN ASPART [NOVOLOG] 3 ML PEN SC ×4 (07:30→20:37)
[2017-08-29 07:43] LABS: PARTIAL THROMBOPLASTIN TIME 41.5 Sec (25.0-35.0)
[2017-08-29] MEDS: ALBUTEROL/IPRATROPIUM (NEB) 3 ML AMP HHN ×3 (07:47→19:18)
[2017-08-29 07:51] LABS: ANION GAP 14 (8-16); BLOOD UREA NITROGEN 68 mg/dl (7-20); CALCIUM 8.4 mg/dl (8.4-10.2); CARBON DIOXIDE 24 mmol/L (21-31); CHLORIDE 106 mmol/L (97-110); CREATININE 2.15 mg/dl (0.61-1.24); GLUCOSE 113 mg/dl (70-220); MAGNESIUM 2.1 mg/dl (1.7-2.5); PHOSPHORUS 4.1 mg/dl (2.5-4.9); POTASSIUM 3.3 mmol/L (3.5-5.1); SODIUM 141 mmol/L (135-144)
[2017-08-29 07:52] LABS: ABNORMAL IP MESSAGE 1; ANION GAP 14 (8-16); BASOPHILS % 0.4 % (0.0-2.0); CARBON DIOXIDE 24 mmol/L (21-31); CHLORIDE 106 mmol/L (97-110); EOSINOPHILS % 0.2 % (0.0-7.0); GLUCOSE 113 mg/dl (70-220); HEMATOCRIT 25.8 % (42.0-52.0); HEMOGLOBIN 8.5 g/dl (14.0-18.0); LYMPHOCYTES # 0.9 10^3/ul (0.8-2.9); LYMPHOCYTES % 15.5 % (15.0-51.0); MEAN CORPUSCULAR HEMOGLOBIN 29.6 pg (29.0-33.0); MEAN CORPUSCULAR HGB CONC 32.9 g/dl (32.0-37.0); MEAN CORPUSCULAR VOLUME 89.9 fl (82.0-101.0); MONOCYTE # 0.5 10^3/ul (0.3-0.9); MONOCYTES % 9.2 % (0.0-11.0); NEUTROPHIL # 4.2 10^3/ul (1.6-7.5); NEUTROPHILS % 73.5 % (39.0-77.0); NUCLEATED RED BLOOD CELLS # 0.2 10^3/ul (0.0-0.0); POSITIVE DIFF @See below; POTASSIUM 3.4 mmol/L (3.5-5.1); RED BLOOD COUNT 2.87 10^6/ul (4.70-6.10); RED CELL DISTRIBUTION WIDTH 19.3 % (11.5-14.5); SODIUM 141 mmol/L (135-144)
[2017-08-29 07:52] LABS: WHITE BLOOD COUNT 5.7 10^3/ul (4.8-10.8)
[2017-08-29 07:53] LABS: ALANINE AMINOTRANSFERASE 374 IU/L (13-69); ALBUMIN 2.7 g/dl (3.3-4.9); ALBUMIN/GLOBULIN RATIO 0.84; ALKALINE PHOSPHATASE 137 IU/L (42-121); ASPARTATE AMINO TRANSFERASE 99 IU/L (15-46); BILIRUBIN,INDIRECT 0.6 mg/dl (0-1.1); BILIRUBIN,TOTAL 0.6 mg/dl (0.2-1.3); BLOOD UREA NITROGEN 69 mg/dl (7-20); CALCIUM 8.3 mg/dl (8.4-10.2); CREATININE 2.15 mg/dl (0.61-1.24); TOTAL PROTEIN 5.9 g/dl (6.1-8.1)
[2017-08-29 07:56] LABS: PLATELET COUNT 33 10^3/UL (140-415)
[2017-08-29] MEDS: LEVOFLOXACIN 500MG/D5W (PMX) 100 ML IVPB (08:53)
[2017-08-29] MEDS: ISOSORBIDE MONONITRATE(SR)30 MG TAB PO (08:54)
[2017-08-29] MEDS: ASPIRIN (EC) 81 MG TAB PO (08:55)
[2017-08-29] MEDS: FAMOTIDINE 20 MG INJ IV (08:55)
[2017-08-29] MEDS: TAMSULOSIN (SR) 0.4 MG CAP PO (20:39)
[2017-08-30] MEDS: ALBUTEROL/IPRATROPIUM (NEB) 3 ML AMP HHN ×5 (00:49→19:27)
[2017-08-30] MEDS: ACCU-CHEK XX (02:00)
[2017-08-30] MEDS: FUROSEMIDE 40 MG INJ IV ×2 (06:22→17:19)
[2017-08-30] MEDS: INSULIN ASPART [NOVOLOG] 3 ML PEN SC ×4 (07:30→20:20)
[2017-08-30 08:37] LABS: ADD MAN DIFF? NO
[2017-08-30 09:07] LABS: ANION GAP 16 (8-16); BLOOD UREA NITROGEN 57 mg/dl (7-20); CALCIUM 8.2 mg/dl (8.4-10.2); CARBON DIOXIDE 22 mmol/L (21-31); CHLORIDE 105 mmol/L (97-110); CREATININE 1.75 mg/dl (0.61-1.24); GLUCOSE 97 mg/dl (70-220); MAGNESIUM 1.9 mg/dl (1.7-2.5); PHOSPHORUS 3.5 mg/dl (2.5-4.9); POTASSIUM 3.2 mmol/L (3.5-5.1); SODIUM 140 mmol/L (135-144)
[2017-08-30] MEDS: ASPIRIN (EC) 81 MG TAB PO (09:33)
[2017-08-30] MEDS: FAMOTIDINE 20 MG TAB PO (09:38)
[2017-08-30 10:48] LABS: WHITE BLOOD COUNT 5.6 10^3/ul (4.8-10.8)
[2017-08-30 10:48] LABS: ABNORMAL IP MESSAGE 1; BASOPHILS % 0.4 % (0.0-2.0); EOSINOPHILS % 0.4 % (0.0-7.0); HEMATOCRIT 27.2 % (42.0-52.0); HEMOGLOBIN 9.1 g/dl (14.0-18.0); LYMPHOCYTES # 0.9 10^3/ul (0.8-2.9); LYMPHOCYTES % 15.3 % (15.0-51.0); MEAN CORPUSCULAR HEMOGLOBIN 30.5 pg (29.0-33.0); MEAN CORPUSCULAR HGB CONC 33.5 g/dl (32.0-37.0); MEAN CORPUSCULAR VOLUME 91.3 fl (82.0-101.0); MEAN PLATELET VOLUME 13.1 fl (7.4-10.4); MONOCYTE # 0.5 10^3/ul (0.3-0.9); MONOCYTES % 8.1 % (0.0-11.0); NEUTROPHIL # 4.1 10^3/ul (1.6-7.5); NEUTROPHILS % 74.2 % (39.0-77.0); NUCLEATED RED BLOOD CELLS # 0.1 10^3/ul (0.0-0.0); NUCLEATED RED BLOOD CELLS% 2.2 /100WBC (0.0-0.0); POSITIVE DIFF @See below; RED BLOOD COUNT 2.98 10^6/ul (4.70-6.10); RED CELL DISTRIBUTION WIDTH 19.7 % (11.5-14.5)
[2017-08-30] MEDS: ISOSORBIDE MONONITRATE(SR)30 MG TAB PO (10:48)
[2017-08-30 10:50] LABS: PLATELET COUNT 34 10^3/UL (140-415)
[2017-08-30 10:53] LABS: PLATELET COUNT 38 10^3/UL (140-415)
[2017-08-30 11:04] LABS: INR 1.72; PROTIME 20.5 Sec (11.9-14.9); PT RATIO 1.6
[2017-08-30 11:05] LABS: PARTIAL THROMBOPLASTIN TIME 40.4 Sec (25.0-35.0); THROMBIN TIME 16.7 SEC (13.8-19.1)
[2017-08-30] MEDS: POTASSIUM CHLORIDE (SR) 20 MEQ TAB PO (11:25)
[2017-08-30 11:34] LABS: D-DIMER 8684.58 ng/ml (<460)
[2017-08-30 12:28] LABS: FIBRIN SPLIT PRODUCT >10 and <40 ug/ml (<10)
[2017-08-30] MEDS: TAMSULOSIN (SR) 0.4 MG CAP PO (20:22)
[2017-08-31] MEDS: ACCU-CHEK XX (02:00)
[2017-08-31] MEDS: ALBUTEROL/IPRATROPIUM (NEB) 3 ML AMP HHN ×4 (02:19→19:18)
[2017-08-31] MEDS: LEVOFLOXACIN 500 MG TAB PO (06:15)
[2017-08-31] MEDS: FUROSEMIDE 40 MG INJ IV ×2 (06:15→17:59)
[2017-08-31 07:12] LABS: ADD MAN DIFF? NO
[2017-08-31 07:14] LABS: ABNORMAL IP MESSAGE 1; BASOPHILS % 0.4 % (0.0-2.0); EOSINOPHILS % 0.4 % (0.0-7.0); HEMATOCRIT 27.4 % (42.0-52.0); HEMOGLOBIN 8.9 g/dl (14.0-18.0); LYMPHOCYTES % 18.4 % (15.0-51.0); MEAN CORPUSCULAR HEMOGLOBIN 29.9 pg (29.0-33.0); MEAN CORPUSCULAR HGB CONC 32.5 g/dl (32.0-37.0); MEAN CORPUSCULAR VOLUME 91.9 fl (82.0-101.0); MONOCYTE # 0.5 10^3/ul (0.3-0.9); MONOCYTES % 10.2 % (0.0-11.0); NEUTROPHIL # 3.7 10^3/ul (1.6-7.5); NEUTROPHILS % 68.5 % (39.0-77.0); NUCLEATED RED BLOOD CELLS # 0.1 10^3/ul (0.0-0.0); NUCLEATED RED BLOOD CELLS% 1.5 /100WBC (0.0-0.0); POSITIVE DIFF @See below; RED BLOOD COUNT 2.98 10^6/ul (4.70-6.10); RED CELL DISTRIBUTION WIDTH 19.9 % (11.5-14.5)
[2017-08-31 07:14] LABS: WHITE BLOOD COUNT 5.3 10^3/ul (4.8-10.8)
[2017-08-31 07:16] LABS: PLATELET COUNT 31 10^3/UL (140-415)
[2017-08-31] MEDS: INSULIN ASPART [NOVOLOG] 3 ML PEN SC ×4 (07:30→21:00)
[2017-08-31 07:58] LABS: ANION GAP 13 (8-16); BLOOD UREA NITROGEN 50 mg/dl (7-20); CALCIUM 8.4 mg/dl (8.4-10.2); CARBON DIOXIDE 25 mmol/L (21-31); CHLORIDE 105 mmol/L (97-110); CREATININE 1.67 mg/dl (0.61-1.24); GLUCOSE 105 mg/dl (70-220); MAGNESIUM 1.9 mg/dl (1.7-2.5); PHOSPHORUS 3.4 mg/dl (2.5-4.9); POTASSIUM 3.3 mmol/L (3.5-5.1); SODIUM 140 mmol/L (135-144)
[2017-08-31] MEDS: FAMOTIDINE 20 MG TAB PO (09:05)
[2017-08-31] MEDS: POTASSIUM CHLORIDE (SR) 20 MEQ TAB PO (09:07)
[2017-08-31] MEDS: SPIRONOLACTONE 25 MG TAB PO (09:07)
[2017-08-31] MEDS: MAGNESIUM SULFATE 2 GM/50 ML 50 ML IVPB (09:08)
[2017-08-31] MEDS: ISOSORBIDE MONONITRATE(SR)30 MG TAB PO (09:10)
[2017-08-31] MEDS ORDERED: LACTULOSE 30ML CUP PO (15:30)
[2017-08-31] MEDS: TAMSULOSIN (SR) 0.4 MG CAP PO (21:04)
[2017-09-01] MEDS: ACCU-CHEK XX (02:00)
[2017-09-01] MEDS: FUROSEMIDE 40 MG INJ IV ×2 (07:04→17:41)
[2017-09-01] MEDS: ALBUTEROL/IPRATROPIUM (NEB) 3 ML AMP HHN ×2 (07:40→19:48)
[2017-09-01] MEDS: INSULIN ASPART [NOVOLOG] 3 ML PEN SC ×4 (08:17→20:22)
[2017-09-01] MEDS: ISOSORBIDE MONONITRATE(SR)30 MG TAB PO (09:49)
[2017-09-01] MEDS: SPIRONOLACTONE 25 MG TAB PO (09:49)
[2017-09-01] MEDS: FAMOTIDINE 20 MG TAB PO (09:49)
[2017-09-01 09:59] LABS: ADD MAN DIFF? NO
[2017-09-01 10:10] LABS: WHITE BLOOD COUNT 6.2 10^3/ul (4.8-10.8)
[2017-09-01 10:10] LABS: ABNORMAL IP MESSAGE 1; BASOPHILS % 0.3 % (0.0-2.0); EOSINOPHILS % 0.5 % (0.0-7.0); HEMATOCRIT 29.6 % (42.0-52.0); HEMOGLOBIN 9.5 g/dl (14.0-18.0); LYMPHOCYTES # 1.1 10^3/ul (0.8-2.9); LYMPHOCYTES % 17.1 % (15.0-51.0); MEAN CORPUSCULAR HEMOGLOBIN 30.2 pg (29.0-33.0); MEAN CORPUSCULAR HGB CONC 32.1 g/dl (32.0-37.0); MONOCYTE # 0.6 10^3/ul (0.3-0.9); MONOCYTES % 8.9 % (0.0-11.0); NEUTROPHIL # 4.4 10^3/ul (1.6-7.5); NEUTROPHILS % 71.4 % (39.0-77.0); NUCLEATED RED BLOOD CELLS # 0.1 10^3/ul (0.0-0.0); NUCLEATED RED BLOOD CELLS% 1.3 /100WBC (0.0-0.0); POSITIVE DIFF @See below; RED BLOOD COUNT 3.15 10^6/ul (4.70-6.10); RED CELL DISTRIBUTION WIDTH 20.9 % (11.5-14.5)
[2017-09-01 10:23] LABS: PLATELET COUNT 32 10^3/UL (140-415)
[2017-09-01 10:51] LABS: B-TYPE NATRIURETIC PEPTIDE 27500 PG/ML (0-450)
[2017-09-01 10:52] LABS: ALANINE AMINOTRANSFERASE 204 IU/L (13-69); ALBUMIN 2.9 g/dl (3.3-4.9); ALKALINE PHOSPHATASE 126 IU/L (42-121); ANION GAP 16 (8-16); ASPARTATE AMINO TRANSFERASE 48 IU/L (15-46); BILIRUBIN,INDIRECT 0.8 mg/dl (0-1.1); BILIRUBIN,TOTAL 0.8 mg/dl (0.2-1.3); BLOOD UREA NITROGEN 42 mg/dl (7-20); CALCIUM 8.3 mg/dl (8.4-10.2); CARBON DIOXIDE 25 mmol/L (21-31); CHLORIDE 105 mmol/L (97-110); CREATININE 1.41 mg/dl (0.61-1.24); GLUCOSE 125 mg/dl (70-220); POTASSIUM 3.6 mmol/L (3.5-5.1); SODIUM 142 mmol/L (135-144); TOTAL PROTEIN 6.1 g/dl (6.1-8.1)
[2017-09-01] MEDS: HYDROCODONE/APAP (5/325) TAB PO (13:25)
[2017-09-01] MEDS: IVABRADINE HCL 5 MG TABLET PO ×2 (13:26→17:41)
[2017-09-01] MEDS: METOLAZONE 5 MG TAB PO (13:26)
[2017-09-01] MEDS: TAMSULOSIN (SR) 0.4 MG CAP PO (20:20)
[2017-09-01] MEDS: LACTULOSE 30ML CUP PO (20:20)
[2017-09-02] MEDS: ACCU-CHEK XX (02:00)
[2017-09-02] MEDS: FUROSEMIDE 40 MG INJ IV (06:16)
[2017-09-02] MEDS: ALBUTEROL/IPRATROPIUM (NEB) 3 ML AMP HHN ×2 (07:22→14:47)
[2017-09-02 07:57] LABS: ADD MAN DIFF? NO
[2017-09-02 08:09] LABS: WHITE BLOOD COUNT 8.4 10^3/ul (4.8-10.8)
[2017-09-02 08:09] LABS: ABNORMAL IP MESSAGE 1; BASOPHILS % 0.4 % (0.0-2.0); EOSINOPHILS % 0.2 % (0.0-7.0); HEMATOCRIT 30.7 % (42.0-52.0); HEMOGLOBIN 9.8 g/dl (14.0-18.0); LYMPHOCYTES # 1.5 10^3/ul (0.8-2.9); LYMPHOCYTES % 17.5 % (15.0-51.0); MEAN CORPUSCULAR HEMOGLOBIN 30.1 pg (29.0-33.0); MEAN CORPUSCULAR HGB CONC 31.9 g/dl (32.0-37.0); MEAN CORPUSCULAR VOLUME 94.2 fl (82.0-101.0); MONOCYTE # 0.8 10^3/ul (0.3-0.9); MONOCYTES % 9.3 % (0.0-11.0); NEUTROPHILS % 71.3 % (39.0-77.0); NUCLEATED RED BLOOD CELLS # 0.1 10^3/ul (0.0-0.0); NUCLEATED RED BLOOD CELLS% 1.1 /100WBC (0.0-0.0); POSITIVE DIFF @See below; RED BLOOD COUNT 3.26 10^6/ul (4.70-6.10); RED CELL DISTRIBUTION WIDTH 21.3 % (11.5-14.5)
[2017-09-02 08:11] LABS: PLATELET COUNT 37 10^3/UL (140-415)
[2017-09-02] MEDS: INSULIN ASPART [NOVOLOG] 3 ML PEN SC ×2 (08:30→11:30)
[2017-09-02 08:31] LABS: ANION GAP 15 (8-16); BLOOD UREA NITROGEN 42 mg/dl (7-20); CALCIUM 8.7 mg/dl (8.4-10.2); CARBON DIOXIDE 27 mmol/L (21-31); CHLORIDE 103 mmol/L (97-110); CREATININE 1.46 mg/dl (0.61-1.24); GLUCOSE 108 mg/dl (70-220); MAGNESIUM 1.9 mg/dl (1.7-2.5); PHOSPHORUS 3.3 mg/dl (2.5-4.9); POTASSIUM 3.6 mmol/L (3.5-5.1); SODIUM 141 mmol/L (135-144)
[2017-09-02] MEDS: ISOSORBIDE MONONITRATE(SR)30 MG TAB PO (09:38)
[2017-09-02] MEDS: FAMOTIDINE 20 MG TAB PO (09:38)
[2017-09-02] MEDS: IVABRADINE HCL 5 MG TABLET PO (09:38)
[2017-09-02] MEDS: SPIRONOLACTONE 25 MG TAB PO (09:38)
[2017-09-02] MEDS: POTASSIUM CHLORIDE (SR) 20 MEQ TAB PO (09:39)
[2017-09-02] MEDS: METOLAZONE 5 MG TAB PO (09:41)
[2017-09-02] MEDS: LACTULOSE 30ML CUP PO (09:41)
== END 2017-09-02 15:25 | DRG 391 ==
LOC: ICU 08-25 15:00 → MS4 08-26 14:22 → E/R 15:18
PROC: 30233K1 Transfusion of Nonautologous Frozen Plasma into Peripheral Vein, Percutaneous Approach (ICD-10-PCS; principal; 2017-08-24)
PROC: 30233R1 Transfusion of Nonautologous Platelets into Peripheral Vein, Percutaneous Approach (ICD-10-PCS; 2017-08-24)
DX: R10.9 Unspecified abdominal pain (principal); I50.43 Acute on chronic combined systolic (congestive) and diastolic (congestive) heart failure; J96.00 Acute respiratory failure, unspecified whether with hypoxia or hypercapnia; N17.0 Acute kidney failure with tubular necrosis; I47.2 Ventricular tachycardia; J81.1 Chronic pulmonary edema; I42.9 Cardiomyopathy, unspecified; E87.2 Acidosis; D68.9 Coagulation defect, unspecified; E87.1 Hypo-osmolality and hyponatremia; E87.0 Hyperosmolality and hypernatremia; I13.0 Hypertensive heart and chronic kidney disease with heart failure and stage 1 through stage 4 chronic kidney disease, or unspecified chronic kidney disease; D69.6 Thrombocytopenia, unspecified; I25.5 Ischemic cardiomyopathy; I25.10 Atherosclerotic heart disease of native coronary artery without angina pectoris; E11.22 Type 2 diabetes mellitus with diabetic chronic kidney disease; E87.6 Hypokalemia; E83.9 Disorder of mineral metabolism, unspecified; N18.9 Chronic kidney disease, unspecified; N40.0 Benign prostatic hyperplasia without lower urinary tract symptoms; D63.8 Anemia in other chronic diseases classified elsewhere; R04.0 Epistaxis; M10.9 Gout, unspecified; K75.81 Nonalcoholic steatohepatitis (NASH); Z86.79 Personal history of other diseases of the circulatory system; Z96.0 Presence of urogenital implants; Z95.1 Presence of aortocoronary bypass graft; Z79.4 Long term (current) use of insulin; Z95.2 Presence of prosthetic heart valve
CPT/HCPCS: 36415; 36430; 36600; 71045; 74176; 74181; 76705; 80048; 80053; 80061; 80076; 81001; 81003; 82043; 82105; 82140; 82378; 82728; 82787; 82803; 82962; 83036; 83540; 83605; 83615; 83690; 83735; 83880; 84100; 84155; 84300; 84560; 85025; 85049; 85362; 85378; 85384; 85610; 85670; 85730; 86038; 86255; 86301; 86644; 86704; 86706; 86709; 86803; 86850; 86900; 86901; 87040; 87081; 87086; 87340; 93005; 93306; 93970; 94640; 94660; 94664; 96374; 96375; 97162; 99285-25; J1940